=== PATIENT | male | born 1975 | race Two or more races ===

== ENCOUNTER 2017-08-07 21:42 | Emergency (ER) | payer MEDICAID ==
[~2017-08-07] VITALS: Ht 172.7 cm; Wt 86.5 kg
[~2017-08-07 21:42] MED LIST: ADV50250 IH; ALB0.5UD IH; ALBU18HF2 INH; ALBU6.7H INH; BENZ-16 PO; COMIN IH; CYCL-1 PO; DIPH-423 PO; EPIN0.3P3 IM; GUAI473S11 PO; INDO50CA PO; LEVA15HF4 IH; METH4TAB81 PO; OMEG500C PO; PRED10TA PO; PRED20TA PO; TELM20TA2 PO
[2017-08-07 22:05] VITALS: BP 146/90
[2017-08-07] MEDS ORDERED: HYDROcodone/acetaminophen 10/325mg tab PO ONE (23:00)
[2017-08-07] MEDS ORDERED: ibuprofen tablet 400 MG TABLET PO ONE (23:00)
[2017-08-07] MEDS ORDERED: IBUP-1986 PO (23:03)
== END 2017-08-07 23:15 | disposition home or self-care (01) ==
LOC: ER 21:43
DX: S90.31XA Contusion of right foot, initial encounter (principal); I10 Essential (primary) hypertension; J45.909 Unspecified asthma, uncomplicated; E11.9 Type 2 diabetes mellitus without complications; G89.29 Other chronic pain; M54.9 Dorsalgia, unspecified; Z91.013 Allergy to seafood; W20.8XXA Other cause of strike by thrown, projected or falling object, initial encounter; Y93.89 Activity, other specified; Y92.89 Other specified places as the place of occurrence of the external cause; Y99.0 Civilian activity done for income or pay
CPT/HCPCS: 73660; 99284

== ENCOUNTER → 2017-10-12 | Emergency (ER) | payer MEDICAID, OTHER ==
[~2017-10-12] VITALS: Ht 172.7 cm; Wt 77.9 kg
[~2017-10-12] MED LIST changes: +DICL50TA8 PO; +IBUP-1986 PO; +ketorolac trometh inj. 60 MG/2 ML VIAL IM ONE
[2017-10-12 13:18] VITALS: BP 145/89
== END | disposition home or self-care (01) ==
LOC: ER 12:23
DX: S46.912A Strain of unspecified muscle, fascia and tendon at shoulder and upper arm level, left arm, initial encounter (principal); I10 Essential (primary) hypertension; E11.9 Type 2 diabetes mellitus without complications; G89.29 Other chronic pain; J45.909 Unspecified asthma, uncomplicated; Z91.013 Allergy to seafood; Z79.899 Other long term (current) drug therapy; X50.0XXA Overexertion from strenuous movement or load, initial encounter; Y93.89 Activity, other specified; Y92.89 Other specified places as the place of occurrence of the external cause; Y99.8 Other external cause status
CPT/HCPCS: 96372; 99283; A4565; J1885

== ENCOUNTER 2017-11-18 10:13 | Emergency (ER) | payer MEDICAID, OTHER ==
[~2017-11-18] VITALS: Ht 172.7 cm; Wt 85.9 kg
[~2017-11-18 10:13] MED LIST changes: -ketorolac trometh inj. 60 MG/2 ML VIAL IM ONE
[2017-11-18] MEDS ORDERED: AMOX-100 PO (10:47)
[2017-11-18] MEDS ORDERED: ACET-3067 PO (10:47)
[2017-11-18] MEDS ORDERED: CHLO473M3 PO (10:47)
[2017-11-18 10:58] VITALS: BP 147/86
== END 2017-11-18 10:59 | disposition home or self-care (01) ==
LOC: ER 10:14
DX: S03.2XXA Dislocation of tooth, initial encounter (principal); X58.XXXA Exposure to other specified factors, initial encounter; Y93.89 Activity, other specified; Y92.89 Other specified places as the place of occurrence of the external cause; Y99.8 Other external cause status; I10 Essential (primary) hypertension; E11.9 Type 2 diabetes mellitus without complications; G89.29 Other chronic pain; J45.909 Unspecified asthma, uncomplicated; Z91.013 Allergy to seafood; Z79.899 Other long term (current) drug therapy
CPT/HCPCS: 99283

== ENCOUNTER 2017-12-25 17:57 | Emergency (ER) | payer MEDICAID ==
[~2017-12-25] VITALS: Ht 172.7 cm; Wt 87.2 kg
[~2017-12-25 17:57] MED LIST changes: +CHLO473M3 PO
[2017-12-25 18:04] VITALS: BP 182/107
[2017-12-25] MEDS ORDERED: PENI250T2 PO (18:28)
[2017-12-25] MEDS ORDERED: NAPR-56 PO (18:29)
[2017-12-25] MEDS ORDERED: HYDROcodone/acetaminophen 5mg/325mg tablet PO ONE (18:30)
== END 2017-12-25 18:40 | disposition home or self-care (01) ==
LOC: ER 17:58
DX: K08.89 Other specified disorders of teeth and supporting structures (principal); I10 Essential (primary) hypertension; J45.909 Unspecified asthma, uncomplicated; G89.29 Other chronic pain; Z91.013 Allergy to seafood; Z79.899 Other long term (current) drug therapy
CPT/HCPCS: 99283

== ENCOUNTER 2019-02-03 17:11 | Emergency (ER) | payer MEDICAID ==
[~2019-02-03] VITALS: Ht 172.7 cm; Wt 80.0 kg
[~2019-02-03 17:11] MED LIST changes: -ALBU6.7H INH; +ALBU6.7H9 INH; -INDO50CA PO; +INDO50CA96 PO
[2019-02-03] MEDS ORDERED: aspirin 81mg tab.chew PO ONE (18:05)
--- NOTE | 2019-02-03 18:19 | NUR ---
PT IS 43 YO MALE C/O "SHARP PAIN " TO LEFT CHEST AND LEFT SHOULDER AT 0900, LASTED 5-10 SECONDS, "THEN JUST SORE FEELING THE REST OF THE DAY", 07/17, NO SOB, NO N/V
[2019-02-03 18:20] LABS: BASOPHILS # (AUTO) 0.1 X10'3 (0-0.2); BASOPHILS % (AUTO) 0.8 % (0-1); EOSINOPHILS # (AUTO) 0.6 X10'3 (0-0.9); EOSINOPHILS % (AUTO) 7.7 % (0-6); HEMATOCRIT 41.4 % (42.0-52.0); HEMOGLOBIN 13.8 g/dl (14.0-17.9); LYMPHOCYTES # (AUTO) 3.3 X10'3 (1.1-4.8); LYMPHOCYTES % (AUTO) 39.4 % (21-51); MEAN CORPUSCULAR HEMOGLOBIN 30.1 PG (27.0-31.0); MEAN CORPUSCULAR HGB CONC 33.3 g/dL (33.0-36.5); MEAN CORPUSCULAR VOLUME 90.4 FL (78-98); MEAN PLATELET VOLUME 7.7 FL (7.4-10.4); MONOCYTES # (AUTO) 0.7 X10'3 (0-0.9); MONOCYTES % (AUTO) 8.3 % (2-12); NEUTROPHILS # (AUTO) 3.6 X10'3 (1.8-7.7); NEUTROPHILS % (AUTO) 43.8 % (42-75); PLATELET COUNT 259 X10'3 (140-440); RED BLOOD COUNT 4.58 X10'6 (4.70-6.10); RED CELL DISTRIBUTION WIDTH 14.9 % (11.5-14.5); WHITE BLOOD COUNT 8.2 X10'3 (4.5-11.0)
[2019-02-03 18:34] LABS: PARTIAL THROMBOPLASTIN TIME 25 SECONDS (22-32)
[2019-02-03 18:42] LABS: ALANINE AMINOTRANSFERASE 34 U/L (12-78); ALBUMIN 3.9 G/DL (3.4-5.0); ALBUMIN/GLOBULIN RATIO 1.2 (1.1-1.5); ALKALINE PHOSPHATASE 82 IU/L (46-116); ANION GAP 8 (8-16); ASPARTATE AMINO TRANSFERASE 16 U/L (10-37); BILIRUBIN,TOTAL 0.3 MG/DL (0.1-1.0); BLOOD UREA NITROGEN 18 MG/DL (7-18); CALCIUM 8.9 MG/DL (8.5-10.1); CHLORIDE 110 MMOL/L (99-107); GLUCOSE 101 MG/DL (70-104); POTASSIUM 3.8 MMOL/L (3.5-5.1); SODIUM 145 MMOL/L (135-145); TOTAL CARBON DIOXIDE 27.2 MMOL/L (24-32); TOTAL PROTEIN 7.2 G/DL (6.4-8.2); eGFR 81 ML/MIN
[2019-02-03 18:55] LABS: D-DIMER < 0.19 MG/L FEU (0-0.50)
[2019-02-03 19:13] VITALS: BP 139/88
== END 2019-02-03 19:15 | disposition home or self-care (01) ==
LOC: ER 17:11
DX: R07.89 Other chest pain (principal); I10 Essential (primary) hypertension; J45.909 Unspecified asthma, uncomplicated; E11.9 Type 2 diabetes mellitus without complications; G89.29 Other chronic pain; Z91.013 Allergy to seafood; Z79.899 Other long term (current) drug therapy
CPT/HCPCS: 36415; 71045; 80053; 84484; 85025; 85379; 85610; 85730; 93005; 99284

== ENCOUNTER 2020-05-04 21:55 | Emergency (ER) | payer MEDICAID ==
[~2020-05-04] VITALS: Ht 172.7 cm; Wt 86.0 kg
[2020-05-04 21:58] VITALS: BP 153/95
--- NOTE | 2020-05-04 22:05 | NUR ---
Pt placed in ambulance bay for precaution and evaluated by provider.
[2020-05-04] MEDS ORDERED: PRED20TA PO (22:10)
[2020-05-04] MEDS ORDERED: predniSONE 20 mg tablet PO ONE (22:10)
== END 2020-05-04 22:19 | disposition home or self-care (01) ==
LOC: ER 21:56
DX: J20.9 Acute bronchitis, unspecified (principal); R06.02 Shortness of breath; R05 Cough; R19.7 Diarrhea, unspecified; R07.89 Other chest pain; I10 Essential (primary) hypertension; J45.909 Unspecified asthma, uncomplicated; E11.9 Type 2 diabetes mellitus without complications; G89.29 Other chronic pain; Z72.89 Other problems related to lifestyle; Z91.013 Allergy to seafood; Z79.899 Other long term (current) drug therapy
CPT/HCPCS: 99283; J7512

== ENCOUNTER → 2020-11-15 | Emergency (ER) | payer MEDICAID ==
[~2020-11-15] VITALS: Ht 172.7 cm; Wt 83.2 kg
[2020-11-15 19:27] VITALS: BP 151/92
== END | disposition left against medical advice (07) ==
LOC: ER 19:19
DX: I10 Essential (primary) hypertension (principal); Z53.21 Procedure and treatment not carried out due to patient leaving prior to being seen by health care provider
CPT/HCPCS: 82948

== ENCOUNTER 2020-12-11 10:48 | Emergency (ER) | payer MEDICAID ==
[~2020-12-11] VITALS: Ht 172.7 cm; Wt 83.3 kg
[2020-12-11 10:58] VITALS: BP 134/90
[2020-12-11] MEDS ORDERED: PRED20TA PO (13:29)
--- NOTE | 2020-12-11 14:07 | NUR ---
PATIENT WAS SEEN, TREATED, AND DC PER PROVIDER. DC INSTRUCTIONS AND RX GIVEN.
== END 2020-12-11 14:06 | disposition home or self-care (01) ==
LOC: ER 10:49
DX: J20.9 Acute bronchitis, unspecified (principal); J45.909 Unspecified asthma, uncomplicated; R06.02 Shortness of breath; I10 Essential (primary) hypertension; E11.9 Type 2 diabetes mellitus without complications; G89.29 Other chronic pain; Z72.89 Other problems related to lifestyle; Z91.013 Allergy to seafood; Z79.899 Other long term (current) drug therapy
CPT/HCPCS: 71046; 99283

== ENCOUNTER → 2021-02-06 | Emergency (ER) | payer MEDICAID ==
[~2021-02-06] VITALS: Ht 172.7 cm; Wt 86.3 kg
[2021-02-06 22:22] VITALS: BP 146/90
== END | disposition home or self-care (01) ==
LOC: ER 22:18
DX: M79.674 Pain in right toe(s) (principal); I10 Essential (primary) hypertension; E11.9 Type 2 diabetes mellitus without complications; G89.29 Other chronic pain; M54.9 Dorsalgia, unspecified; J45.909 Unspecified asthma, uncomplicated; Z88.2 Allergy status to sulfonamides; Z79.899 Other long term (current) drug therapy
CPT/HCPCS: 73660; 99283

== ENCOUNTER 2021-04-26 19:10 | Emergency (ER) | payer MEDICAID ==
[~2021-04-26] VITALS: Ht 172.7 cm; Wt 84.0 kg
[2021-04-26 20:47] LABS: BASOPHILS % (AUTO) 0.4 % (0-1); EOSINOPHILS % (AUTO) 0.2 % (0-6); HEMATOCRIT 53.3 % (42.0-52.0); HEMOGLOBIN 17.5 g/dl (14.0-17.9); LYMPHOCYTES # (AUTO) 1.9 X10'3 (1.1-4.8); LYMPHOCYTES % (AUTO) 15.7 % (21-51); MEAN CORPUSCULAR HEMOGLOBIN 29.6 PG (27.0-31.0); MEAN CORPUSCULAR HGB CONC 32.8 g/dL (33.0-36.5); MEAN CORPUSCULAR VOLUME 90.1 FL (78-98); MEAN PLATELET VOLUME 7.8 FL (7.4-10.4); MONOCYTES # (AUTO) 0.7 X10'3 (0-0.9); MONOCYTES % (AUTO) 5.5 % (2-12); NEUTROPHILS # (AUTO) 9.5 X10'3 (1.8-7.7); NEUTROPHILS % (AUTO) 78.2 % (42-75); PLATELET COUNT 355 X10'3 (140-440); RED BLOOD COUNT 5.92 X10'6 (4.70-6.10); RED CELL DISTRIBUTION WIDTH 14.2 % (11.5-14.5); WHITE BLOOD COUNT 12.2 X10'3 (4.5-11.0)
[2021-04-26 20:55] LABS: ALANINE AMINOTRANSFERASE 118 U/L (12-78); ALBUMIN 4.7 G/DL (3.4-5.0); ALBUMIN/GLOBULIN RATIO 0.9 (1.1-1.5); ALKALINE PHOSPHATASE 97 IU/L (46-116); ANION GAP 15 (8-16); ASPARTATE AMINO TRANSFERASE 35 U/L (10-37); BILIRUBIN,TOTAL 0.3 MG/DL (0.1-1.0); BLOOD UREA NITROGEN 17 MG/DL (7-18); BUN/CREATININE RATIO 12.8 (5.4-32.0); CALCIUM 10.3 MG/DL (8.5-10.1); CHLORIDE 101 MMOL/L (99-107); CREATININE 1.33 MG/DL (0.60-1.10); GLUCOSE 246 MG/DL (70-104); POTASSIUM 4.2 MMOL/L (3.5-5.1); SODIUM 143 MMOL/L (135-145); TOTAL CARBON DIOXIDE 27.3 MMOL/L (24-32); TOTAL PROTEIN 9.7 G/DL (6.4-8.2); eGFR 58 ML/MIN
[2021-04-26] MEDS ORDERED: EPIN0.3A3 (23:32)
[2021-04-26] MEDS ORDERED: LANC-509 TOP (23:32)
[2021-04-26] MEDS ORDERED: LORA10TA7 PO (23:32)
[2021-04-26] MEDS ORDERED: ALBU2.5V13 (23:32)
[2021-04-26] MEDS ORDERED: BUDE10.27 (23:32)
[2021-04-26] MEDS ORDERED: METO-384 PO (23:32)
[2021-04-26] MEDS ORDERED: METF-438 PO (23:32)
[2021-04-26] MEDS ORDERED: MONT10TA32 PO (23:32)
[2021-04-26] MEDS ORDERED: ATOR20TA66 PO (23:32)
[2021-04-26] MEDS ORDERED: HYDR25TA4 PO (23:32)
[2021-04-26 23:40] VITALS: BP 117/90
--- NOTE | 2021-04-28 14:24 | NUR ---
Spoke with Dr. velasco regarding postive blood culture. Dr. Velasco stated that we need to wait for sensitivity report before further orders.
== END 2021-04-27 00:53 | disposition home or self-care (01) ==
LOC: ER 19:11
DX: J20.9 Acute bronchitis, unspecified (principal); R05.9 Cough, unspecified; R06.02 Shortness of breath; I10 Essential (primary) hypertension; J45.909 Unspecified asthma, uncomplicated; E11.9 Type 2 diabetes mellitus without complications; G89.29 Other chronic pain; F17.200 Nicotine dependence, unspecified, uncomplicated; Z72.89 Other problems related to lifestyle; Z91.013 Allergy to seafood; Z79.899 Other long term (current) drug therapy
CPT/HCPCS: 36415; 71046; 80053; 83880; 85025; 87040; 99284

== ENCOUNTER → 2021-07-07 | Emergency (ER) | payer MEDICAID ==
[~2021-07-07] VITALS: Ht 172.7 cm; Wt 90.0 kg
[~2021-07-07] MED LIST changes: -ALB0.5UD IH; +ALBU2.5V13; +ATOR20TA66 PO; -BENZ-16 PO; +BUDE10.27; -CHLO473M3 PO; -CYCL-1 PO; -DICL50TA8 PO; -DIPH-423 PO; +EPIN0.3A3; -EPIN0.3P3 IM; -GUAI473S11 PO; +HYDR25TA4 PO; -INDO50CA96 PO; +LANC-509 TOP; +LORA10TA7 PO; +METF-438 PO; +METO-384 PO; +MONT-40 PO; -OMEG500C PO; -PRED10TA PO; -TELM20TA2 PO
[2021-07-07 09:31] VITALS: BP 139/73
== END | disposition home or self-care (01) ==
LOC: ER 09:03
DX: J45.901 Unspecified asthma with (acute) exacerbation (principal); R05.9 Cough, unspecified; R06.02 Shortness of breath; I10 Essential (primary) hypertension; E11.9 Type 2 diabetes mellitus without complications; G89.29 Other chronic pain; F17.200 Nicotine dependence, unspecified, uncomplicated; Z72.89 Other problems related to lifestyle; Z91.013 Allergy to seafood; Z79.899 Other long term (current) drug therapy
CPT/HCPCS: 99283

== ENCOUNTER 2021-10-05 12:56 | Emergency (ER) | payer MEDICAID ==
[~2021-10-05] VITALS: Ht 172.7 cm; Wt 81.8 kg
[2021-10-05 13:22] LABS: BASOPHILS # (AUTO) 0.1 X10'3 (0-0.2); BASOPHILS % (AUTO) 1.2 % (0-1); EOSINOPHILS % (AUTO) 11.7 % (0-6); HEMATOCRIT 43.3 % (42.0-52.0); HEMOGLOBIN 14.5 g/dl (14.0-17.9); LYMPHOCYTES # (AUTO) 2.5 X10'3 (1.1-4.8); LYMPHOCYTES % (AUTO) 30.5 % (21-51); MEAN CORPUSCULAR HEMOGLOBIN 28.8 PG (27.0-31.0); MEAN CORPUSCULAR HGB CONC 33.6 g/dL (33.0-36.5); MEAN CORPUSCULAR VOLUME 85.8 FL (78-98); MEAN PLATELET VOLUME 7.7 FL (7.4-10.4); MONOCYTES # (AUTO) 0.8 X10'3 (0-0.9); MONOCYTES % (AUTO) 9.6 % (2-12); NEUTROPHILS # (AUTO) 3.9 X10'3 (1.8-7.7); PLATELET COUNT 290 X10'3 (140-440); RED BLOOD COUNT 5.05 X10'6 (4.70-6.10); RED CELL DISTRIBUTION WIDTH 13.7 % (11.5-14.5); WHITE BLOOD COUNT 8.3 X10'3 (4.5-11.0)
[2021-10-05 13:36] LABS: ALBUMIN 4.1 G/DL (3.4-5.0); ALBUMIN/GLOBULIN RATIO 1.2 (1.1-1.5); ANION GAP 12 (8-16); ASPARTATE AMINO TRANSFERASE 25 U/L (10-37); BILIRUBIN,TOTAL 0.4 MG/DL (0.1-1.0); BLOOD UREA NITROGEN 13 MG/DL (7-18); BUN/CREATININE RATIO 13.4 (5.4-32.0); CALCIUM 9.1 MG/DL (8.5-10.1); CHLORIDE 104 MMOL/L (99-107); CREATININE 0.97 MG/DL (0.60-1.10); GLUCOSE 160 MG/DL (70-104); POTASSIUM 3.2 MMOL/L (3.5-5.1); SODIUM 142 MMOL/L (135-145); TOTAL CARBON DIOXIDE 26.1 MMOL/L (24-32); TOTAL PROTEIN 7.4 G/DL (6.4-8.2); eGFR 83 ML/MIN
[2021-10-05 13:37] LABS: ALANINE AMINOTRANSFERASE 59 U/L (12-78); ALKALINE PHOSPHATASE 74 IU/L (46-116)
[2021-10-05 14:11] VITALS: BP 146/89
[2021-10-05] MEDS ORDERED: potassium Cl 20 mEq SR tablet PO STA (14:27)
[2021-10-05] MEDS ORDERED: ALBU18HF2 INH (14:33)
[2021-10-05] MEDS ORDERED: PRED20TA PO (14:33)
[2021-10-05] MEDS ORDERED: dexamethasone 4mg tablet PO ONE (14:35)
== END 2021-10-05 15:05 | disposition home or self-care (01) ==
LOC: ER 12:57
DX: J45.901 Unspecified asthma with (acute) exacerbation (principal); E87.6 Hypokalemia; I10 Essential (primary) hypertension; G89.29 Other chronic pain; M54.9 Dorsalgia, unspecified; Z91.013 Allergy to seafood; Z88.2 Allergy status to sulfonamides
CPT/HCPCS: 36415; 71046; 80053; 85025; 93005; 99285

== ENCOUNTER 2023-04-15 15:44 | Emergency (ER) | payer MEDICAID ==
[~2023-04-15] VITALS: Ht 172.7 cm; Wt 90.0 kg
[~2023-04-15 15:44] MED LIST changes: +ALBU6.7H14 INH; -ALBU6.7H9 INH
[2023-04-15 15:48] VITALS: BP 152/90; PULSE 78; RESP 18; TEMP 98; O2SAT 98
== END 2023-04-15 19:19 | disposition left against medical advice (07) ==
LOC: ER 15:45
DX: R10.2 Pelvic and perineal pain (principal); Z53.21 Procedure and treatment not carried out due to patient leaving prior to being seen by health care provider
CPT/HCPCS: 99281

== ENCOUNTER 2023-04-19 18:39 | Emergency (ER) | payer MEDICAID ==
[~2023-04-19] VITALS: Ht 172.7 cm; Wt 79.2 kg
[2023-04-19 19:12] LABS: BILIRUBIN,URINE NEGATIVE (Neg); CLARITY,URINE CLEAR (Clear); COLOR,URINE STRAW (Yellow); GLUCOSE, URINE 500 mg/dl (Neg); KETONES,URINE NEGATIVE (Neg); LEUKOCYTE ESTERASE ,URINE NEGATIVE (Neg); NITRITES, URINE NEGATIVE (Neg); OCCULT BLOOD,URINE TRACE-INTACT (Neg); PROTEIN,URINE NEGATIVE (Neg)
[2023-04-19 19:13] LABS: UA COLLECTION TYPE CLN CATCH MIDSTREAM
[2023-04-19 19:25] LABS: BACTERIA,URINE NONE SEEN /HPF (Neg); MUCUS STRANDS NONE SEEN /LPF (Neg); RBC,URINE 0-2 /HPF (0-2); SQUAMOUS EPITHELIAL CELL,UR NONE SEEN /LPF (FEW); WBC,URINE 0-4 /HPF (0-4)
--- NOTE | 2023-04-19 20:24 | NUR ---
PT PAIN HAS IMPROVED
[2023-04-19 20:34] LABS: BASOPHILS # (AUTO) 0.1 X10'3 (0-0.2); BASOPHILS % (AUTO) 0.7 % (0-1); EOSINOPHILS # (AUTO) 0.4 X10'3 (0-0.9); EOSINOPHILS % (AUTO) 4.2 % (0-6); HEMATOCRIT 48.1 % (42.0-52.0); HEMOGLOBIN 16.3 g/dl (14.0-17.9); LYMPHOCYTES # (AUTO) 3.6 X10'3 (1.1-4.8); LYMPHOCYTES % (AUTO) 35.9 % (21-51); MEAN CORPUSCULAR HGB CONC 33.8 g/dL (33.0-36.5); MEAN CORPUSCULAR VOLUME 88.8 FL (78-98); MEAN PLATELET VOLUME 7.4 FL (7.4-10.4); MONOCYTES # (AUTO) 0.8 X10'3 (0-0.9); MONOCYTES % (AUTO) 8.2 % (2-12); NEUTROPHILS # (AUTO) 5.2 X10'3 (1.8-7.7); PLATELET COUNT 330 X10'3 (140-440); RED BLOOD COUNT 5.41 X10'6 (4.70-6.10); RED CELL DISTRIBUTION WIDTH 13.9 % (11.5-14.5); WHITE BLOOD COUNT 10.1 X10'3 (4.5-11.0)
[2023-04-19 21:01] LABS: ALANINE AMINOTRANSFERASE 60 U/L (12-78); ALBUMIN 4.2 G/DL (3.4-5.0); ALBUMIN/GLOBULIN RATIO 1.1 (1.1-1.5); ALKALINE PHOSPHATASE 116 IU/L (46-116); BILIRUBIN,TOTAL 0.2 MG/DL (0.1-1.0); BLOOD UREA NITROGEN 20 MG/DL (7-18); CALCIUM 9.4 MG/DL (8.5-10.1); CHLORIDE 101 MMOL/L (99-107); CREATININE 1.25 MG/DL (0.60-1.10); TOTAL CARBON DIOXIDE 32.3 MMOL/L (24-32); eCRCL 69 ML/MIN; eGFR 61 ML/MIN
[2023-04-19 22:06] LABS: ASPARTATE AMINO TRANSFERASE 21 U/L (10-37); GLUCOSE 225 MG/DL (70-104)
[2023-04-19 22:26] LABS: LIPASE 36 U/L (16-77)
[2023-04-19 22:46] LABS: ANION GAP 7 (8-16); POTASSIUM 3.4 MMOL/L (3.5-5.1); SODIUM 140 MMOL/L (135-145)
[2023-04-19] MEDS ORDERED: iohexol 300mg/ml 100ml inj. ONE (23:02)
[2023-04-19] MEDS ORDERED: morphine 4 MG/ML inj SYRINge IV ONE (23:25)
[2023-04-19] MEDS ORDERED: ondansetron/PF 4mg/2ml inj IV ONE (23:25)
[2023-04-19 23:51] VITALS: BP 147/103; PULSE 70; RESP 17; TEMP 97.6; O2SAT 98
== END 2023-04-20 | disposition home or self-care (01) ==
LOC: ER 18:40
DX: R10.31 Right lower quadrant pain (principal); N18.9 Chronic kidney disease, unspecified; I12.0 Hypertensive chronic kidney disease with stage 5 chronic kidney disease or end stage renal disease; E11.22 Type 2 diabetes mellitus with diabetic chronic kidney disease; J45.909 Unspecified asthma, uncomplicated; F17.200 Nicotine dependence, unspecified, uncomplicated; Z91.013 Allergy to seafood; Z79.899 Other long term (current) drug therapy; Z79.1 Long term (current) use of non-steroidal anti-inflammatories (NSAID)
CPT/HCPCS: 36415; 74177; 80053; 81001; 83690; 85025; 96374; 96375; 99285; J2270; J2405; J3490; Q9967

== ENCOUNTER 2024-05-05 11:00 | Emergency (ER) | payer MEDICAID ==
[~2024-05-05] VITALS: Ht 172.7 cm; Wt 81.5 kg
[2024-05-05 11:07] VITALS: BP 171/99; PULSE 91; RESP 18; O2SAT 100
[2024-05-05 11:59] VITALS: TEMP 97.4
== END 2024-05-05 12:01 | disposition home or self-care (01) ==
LOC: ER 11:01
DX: Z48.00 Encounter for change or removal of nonsurgical wound dressing (principal); I10 Essential (primary) hypertension; J45.909 Unspecified asthma, uncomplicated; E11.9 Type 2 diabetes mellitus without complications; G89.29 Other chronic pain; M54.9 Dorsalgia, unspecified; F17.210 Nicotine dependence, cigarettes, uncomplicated; Z72.89 Other problems related to lifestyle; Z91.013 Allergy to seafood; Z79.84 Long term (current) use of oral hypoglycemic drugs; Z79.1 Long term (current) use of non-steroidal anti-inflammatories (NSAID); Z79.52 Long term (current) use of systemic steroids; Z79.899 Other long term (current) drug therapy
CPT/HCPCS: 99281

== ENCOUNTER 2024-12-15 23:02 | Inpatient (IN) | payer MEDICAID ==
[~2024-12-15] VITALS: Ht 172.7 cm; Wt 79.2 kg
[2024-12-15 23:21] LABS: BASOPHILS # (AUTO) 0.1 X10'3 (0-0.2); BASOPHILS % (AUTO) 0.7 % (0-1); EOSINOPHILS # (AUTO) 0.4 X10'3 (0-0.9); HEMATOCRIT 44.4 % (42.0-52.0); HEMOGLOBIN 15.3 g/dl (14.0-17.9); LYMPHOCYTES # (AUTO) 2.9 X10'3 (1.1-4.8); LYMPHOCYTES % (AUTO) 33.8 % (21-51); MEAN CORPUSCULAR HEMOGLOBIN 30.1 PG (27.0-31.0); MEAN CORPUSCULAR HGB CONC 34.5 g/dL (33.0-36.5); MEAN CORPUSCULAR VOLUME 87.1 FL (78-98); MEAN PLATELET VOLUME 7.2 FL (7.4-10.4); NEUTROPHILS # (AUTO) 4.4 X10'3 (1.8-7.7); NEUTROPHILS % (AUTO) 50.5 % (42-75); PLATELET COUNT 283 X10'3 (140-440); RED CELL DISTRIBUTION WIDTH 13.9 % (11.5-14.5); WHITE BLOOD COUNT 8.6 X10'3 (4.5-11.0)
--- NOTE | 2024-12-15 23:39 | RADIOLOGY REPORT ---
CHEST RADIOGRAPH Indication: CP Technique: Single frontal view of the chest was obtained COMPARISON: CHEST,SINGLE VIEW on DOS: 02/03/19 FINDINGS: Lines and Tubes: None Lungs: Clear Pleura: No effusion. No pneumothorax. Cardiomediastinal contours: Unremarkable Bones: Unremarkable IMPRESSION: 1. No acute disease.
[2024-12-15 23:42] LABS: BLOOD UREA NITROGEN 18 MG/DL (7-18); BUN/CREATININE RATIO 13.7 (10.0-20.0); CHLORIDE 102 MMOL/L (99-107); CREATININE 1.31 MG/DL (0.60-1.10); PRO BRAIN NATRIURETIC PEPTIDE < 30 PG/ML (0-125); TOTAL CARBON DIOXIDE 30.4 MMOL/L (24-32); eCRCL 65 ML/MIN; eGFR 58 ML/MIN
[2024-12-16] VITALS (21 sets, daily range): BP systolic 107–145; BP diastolic 66–91; PULSE 60–94; RESP 15–19; TEMP 97.6–98.6; O2SAT 94–97
[2024-12-16 00:03] LABS: ANION GAP 10 (8-16); GLUCOSE 198 MG/DL (70-104); SODIUM 142 MMOL/L (135-145)
[2024-12-16] MEDS: aspirin 81mg tab.chew PO ONE (04:41)
[2024-12-16] MEDS: nitroGLYCERIN 0.4mg SUBLingual tab SL PRN (04:41)
[2024-12-16] MEDS ORDERED: magnesium sulf-water 2g/50mL 50 ML IV PRN ×2 (05:15→06:25)
[2024-12-16] MEDS ORDERED: ondansetron/PF 4mg/2ml inj IV PRN ×3 (05:15→17:55)
[2024-12-16] MEDS ORDERED: magnesium sulf-water 4G/100mL 100 ML IV PRN ×2 (05:15→06:25)
[2024-12-16] MEDS ORDERED: mag hydrox/Alum hydrox/simeth 30ml oral suspension PO PRN (05:15)
[2024-12-16] MEDS ORDERED: acetaminophen 325mg tablet PO PRN ×2 (05:15→06:25)
[2024-12-16] MEDS ORDERED: potassium Cl 20 mEq SR tablet PO PRN ×3 (05:15→06:25)
[2024-12-16] MEDS ORDERED: potassium Cl 40MEQ/1/2NS 520ml 520 ML IV PRN ×2 (05:15→06:25)
[2024-12-16] MEDS ORDERED: magnesium Cl slow-release 64mg tablet PO PRN ×2 (05:15→06:25)
[2024-12-16] MEDS ORDERED: magnesium hydroxide 30ml (MOM) UD suspension PO PRN ×2 (05:15→06:25)
--- NOTE | 2024-12-16 05:26 | Physician Documentation ---
History of Present Illness ~ Chief Complaint: Chest Pain Stated Complaint: CHEST PAIN Time Seen by MD: 04:21 Primary Medical Doctor: SUSAN ZAPIEN Source: patient Mode of Arrival: POV Exam Limitations: no limitations HPI Patient with history of diabetes and hypertension in with mild chest pain over the weekend that worsened today. It goes across his anterior chest on both sides. Otherwise nonradiating. 02/14. No shortness of breath, diaphoresis or nausea or vomiting. He has never had this kind of pain before. Nonsmoker, no alcohol, no drugs. Medication Reconciliation Allergies: Coded Allergies: Shellfish (Verified Allergy, Unknown, 12/15/24) Scheduled Atorvastatin Calcium (Atorvastatin Calcium), 1 TAB PO DAILY, (Reported) Hydrochlorothiazide (Hydrochlorothiazide), 1 TAB PO DAILY, (Reported) Loratadine (Loratadine), 1 TAB PO DAILY, (Reported) Metformin HCl (Metformin HCl), 1 TAB PO BID, (Reported) Metoprolol Succinate (Metoprolol Succinate), 1 TAB PO DAILY, (Reported) Montelukast Sodium (Montelukast Sodium), 1 TAB PO DAILY, (Reported) Scheduled PRN Ipratropium/Albuterol Sulfate Inhaler* (Combivent Inhaler*), 2 PUFFS IH Q4H PRN, (Reported) Miscellaneous Medications Albuterol Sulfate (Albuterol Sulfate), (Reported) Discontinued Medications Albuterol Sulfate (Proventil Hfa), 2 PUFFS INH Q4H Discontinued Reason: patient no longer taking Albuterol Sulfate (Ventolin Hfa), 2 PUFFS INH Q4HPRN Discontinued Reason: patient no longer taking Albuterol Sulfate (Ventolin Hfa), 2 PUFFS INH Q4HPRN Discontinued Reason: patient no longer taking Budesonide/Formoterol Fumarate (Budesonide-Formoterol 80-4.5), (Reported) Discontinued Reason: patient no longer taking Epinephrine (Epinephrine), (Reported) Discontinued Reason: patient no longer taking Fluticasone/Salmeterol* (Advair 250-50 Diskus*), 1 INH IH DAILY Discontinued Reason: patient no longer taking Ibuprofen (Ibuprofen), 1 TAB PO Q8H Discontinued Reason: patient no longer taking Levalbuterol Tartrate* (Xopenex Inhaler*), 2 PUFF IH Q4H Discontinued Reason: patient no longer taking Methylprednisolone (Medrol Dosepak), 4 MG PO DAILY Discontinued Reason: patient no longer taking Prednisone* (Prednisone*), 40 MG PO DAILY Discontinued Reason: patient no longer taking Durable Medical Equipment Lancets (Freestyle Lancets), EA TOP BID, (Reported), (DME) Past Medical History Past Medical History: Vertigo, Hypertension, Asthma, Bronchitis, Diabetes, Chronic Back Pain Past Surgical History: noncontributory Other Past Family History: Hypertension, Diabetes Smoking Status: Former smoker Alcohol Use: Occasionally Drug Use: none Lives with: Spouse Lives In: Home Occupation: employed Review of Systems All Other Systems at this time: Reviewed and Negative Physical Exam Vital Signs: Temperature: 98.6, Source: Temporal, Heart Rate: 69, Respiratory Rate: 16, BP: 132/82, Pulse Oximetry: 98, Weight: 80.150 Oxygen Flow Rate: 0 Physical Exam General: Alert and oriented x4, well-appearing, well-nourished, no acute distress HEENT: Normocephalic, atraumatic, no visible or palpable masses or depression, extraocular movements intact, PERRLA, no scleral icterus, neck is supple and nontender, mucous membranes moist Heart: Regular rate and rhythm, no murmurs, rubs or gallops Lungs: Clear to auscultation bilaterally, normal work of breathing Abdomen: Soft, nontender, no palpable masses, normal bowel sounds Back: Spine is without deformity or tenderness, no CVA tenderness Extremities: Full range of motion, no acute deformity, peripheral pulses intact, no cyanosis or edema Musculoskeletal: Normal gait, normal tone Neurologic: Cranial nerves 2-12 are intact, reflexes normal Psychiatric: Alert and oriented x4, judgment and insight normal, normal mood and affect Skin: Good turgor, no rashes Progress Results/Orders Results/Orders Orders - CHERELLE MILLER MD Chest,Single View (12/15/24 23:21) Monitor (12/15/24 23:06) Saline Lock (12/15/24 23:06) Oxygen (12/15/24 23:06) Electrocardiogram (12/15/24 23:06) Nitroglycerin Sublingual Tab (Nitrostat (12/16/24 04:35) Page Hospitalist (12/16/24 04:32) Fill Out Med Reconciliation (12/16/24 04:32) Completed Orders - CHERELLE MILLER MD Chest,Single View (12/15/24 23:21) Cbc/Diff (12/15/24 23:06) BMP (12/15/24 23:06) PBNP (12/15/24 23:06) Hs Troponin I W Calculations (12/15/24 23:06) Hs Troponin I W Calculations (12/16/24 01:06) Hs Troponin I W Calculations (12/16/24 02:06) Aspirin 81mg Chew Tablet (Aspirin 81mg C (12/16/24 04:35) Medications Received in ER Medications (Trade) Dose Ordered Sig/Ivana Route PRN Reason Start Time Stop Time Status Last Admin Dose Admin (aspirin 81MG chew tablet) 324 mg ONCE ONCE PO 12/16/24 04:35 12/16/24 04:36 DC 12/16/24 04:41 324 MG (Nitrostat SL tablet) 0.4 mg Q5MIN PRN SL chest pain 12/16/24 04:35 12/16/24 05:08 0.4 MG Vital Signs 12/15/24 12/16/24 12/16/24 23:03 04:21 04:58 Temp 98.6 98.6 98.6 Pulse 96 70 69 Resp 16 16 16 B/P (MAP) 149/84 133/87 (102) 132/82 (99) Pulse Ox 97 98 98 O2 Flow Rate 0 Laboratory Tests Test 12/15/24 23:14 12/16/24 00:53 12/16/24 01:53 White Blood Count 8.6 Red Blood Count 5.10 Hemoglobin 15.3 Hematocrit 44.4 Mean Corpuscular Volume 87.1 Mean Corpuscular Hemoglobin 30.1 Mean Corpuscular Hemoglobin Concent 34.5 Red Cell Distribution Width 13.9 Platelet Count 283 Mean Platelet Volume 7.2 L Neutrophils (%) (Auto) 50.5 Lymphocytes (%) (Auto) 33.8 Monocytes (%) (Auto) 11.0 Eosinophils (%) (Auto) 4.0 Basophils (%) (Auto) 0.7 Neutrophils # (Auto) 4.4 Lymphocytes # (Auto) 2.9 Monocytes # (Auto) 1.0 H Eosinophils # (Auto) 0.4 Basophils # (Auto) 0.1 CBC Comment Sodium Level 142 Potassium Level 3.0 *L Chloride Level 102 Carbon Dioxide Level 30.4 Anion Gap 10 Blood Urea Nitrogen 18 Creatinine 1.31 H Estimated GFR/1.73 m2 58 BUN/Creatinine Ratio 13.7 Glucose Level 198 H Calcium Level 9.0 Troponin I High Sensitivity 7 8 6 Pro-B-Type Natriuretic Peptide < 30 Albumin 4.0 Chemistry Comments Troponin I High Sens Percent Delta 14 25 Troponin I Hi Sens Absolute Change 1 -2 Heart Score: Heart Score Response (Comments) Value History Moderate Suspicious 1 EKG Normal 0 Age 45-64 1 Risk Factors 1 or 2 risk factors 1 Troponin Normal limit 0 Total 3 Medical Decision Making Additional Information Differential includes but is not limited to: Myocardial infarction, angina, GERD, pleurisy, costochondritis, tamponade, pneumothorax, dissection, anxiety Departure Admitted to Inpatient Unit: yes, to hospitalist Admission Level of Care: Med/Surg with Tele Impression: Primary Impression: Unstable angina Condition: Stable Referrals: NO PRIMARY CARE PROVIDER (PCP) Signature Scribe Signature: No scribe Attestation: No scribed CHERELLE MILLER MD Dec 16, 2024 05:26
--- NOTE | 2024-12-16 06:02 | PROGRESS NOTE ---
Critical Care Summary Note Critical Care Summary Note Admission Diagnosis: Dec 16, 2024 Admission Diagnosis comment: Chest pain syndrome with normal cardiac markers and chest radiograph. CC DC Diagnosis\Comment: Resident note yet to be written. 49-year-old man with diabetes mellitus and hypertension presents with 8/10 band-like chest discomfort. Cardiac markers negative X3. Chest radiograph without acute disease. EKG remains pending. *Problems/Diagnosis: (1) Unstable angina Assessment & Plan: Admit to telemetry to r/o ischemic etiology of the patient's chest pain. ROXANN ROD MD Dec 16, 2024 06:02
[2024-12-16] MEDS: K and/or MAG REPLACEMENT MC SCH ×2 (06:25→06:31)
[2024-12-16] MEDS: docusate sod 100mg capsule PO SCH (06:32)
[2024-12-16] MEDS ORDERED: nitroGLYCERIN 0.4mg SUBLingual tab SL PRN ×2 (06:45→18:00)
[2024-12-16] MEDS ORDERED: aminophylline 500mg/20ml vial IV PRN (06:45)
[2024-12-16] MEDS ORDERED: metoprolol tartrate 1mg/ml inj IV PRN (06:45)
--- NOTE | 2024-12-16 06:45 | HISTORY AND PHYSICAL-Residence ---
History & Physical Providers to CC Resident Creating Document: NADIRA ACOSTA RES ~ History of Present Illness Primary Medical Doctor: SUSAN ZAPIEN Reason for Admit\Complaint: Chest pain History of Present Illness 49 years old male with history of hypertension dyslipidemia diabetes mellitus presented to the ED with chest pain. Patient reported intermittent chest pain started about three days ago and it last about couple of sec. It was not radiated, located on the upper chest and not related to physical activity or rest. Patient denied coughing shortness of breaths. He denied any exacerbation or alleviating factor Allergies: Coded Allergies: Shellfish (Verified Allergy, Unknown, 12/15/24) Home Medications Home Medications Active Reported Atorvastatin Calcium 20 Mg Tablet 1 Tab PO DAILY Hydrochlorothiazide 25 Mg Tablet 1 Tab PO DAILY Freestyle Lancets (Lancets) 1 Each Each Ea TOP BID Metformin HCl 1,000 Mg Tablet 1 Tab PO BID Montelukast Sodium 10 Mg Tablet 1 Tab PO DAILY Loratadine 10 Mg Tablet 1 Tab PO DAILY Metoprolol Succinate 50 Mg Tab.sr.24h 1 Tab PO DAILY Albuterol Sulfate (Albuterol) 2.5 Mg/3 Ml Vial.neb Combivent Inhaler* (Albuterol/Ipratropium) 14.7 Gm Inhaler 2 Puffs IH Q4H PRN Past Medical History Past Medical History Hypertension Dyslipidemia Diabetes mellitus Past Surgical History Surgical History Comment Polypectomy in hemorrhoid Family History Family History: FH: stroke (Mother) Past Social History Smoking: Quit greater than 1 year (Quit smoking two years ago, had history of one pack daily cigarette smoking for more than 20 years) Alcohol Use: Occasionally Drug Use: None Lives with: Spouse Lives In: Home Occupation: employed ROS ROS The history of present illness included a review of system, which yielded relevant positives and negatives Exam Vitals: Vital Signs Date Time Temp Pulse Resp B/P (MAP) Pulse Ox O2 Delivery O2 Flow Rate FiO2 12/16/24 05:24 16 12/16/24 04:58 98.6 69 98 12/15/24 23:03 0 General: General: Awake and Alert, no acute distress. HEENT: Conjunctiva pink, Sclera clear, Mucus Membranes moist. Neck: Supple without masses and tenderness. Resp: Lungs clear to auscultation bilaterally. Heart: Regular Rate and rhythm, normal S1 and S2 Abdomen: Soft and non tender no organomegaly Extremities: No cyanosis,clubbing or edema. Skin: Warm and Dry. Neurological: Speech is clear, alert, and oriented x 4, no gross neurological deficits Diagnostic Data Last Recorded Lab Results: 12/15/24231312/15/242313 Advance Care Planning Advanced Care plannin - 30 Minutes Additional Plan 49 years old male with history of hypertension, dyslipidemia and diabetes mellitus presented with chest pain Chest pain, POSSIBLE CARDIAC Heart score: Four moderate score risk of MACE of 12-16.6% EKG, rate 88, sinus rhythm, Q-wave on lead three and AVF Serial troponin is negative, chest x-ray unremarkable Lexiscan ordered Patient received aspirin 325, we will continue aspirin 81 Lipitor 80 mg, metoprolol 50 started Nitroglycerin and morphine for pain management History of diabetes mellitus Hemoglobin A1c is pending Hyperglycemia hypoglycemia protocol placed Hypokalemia Patient reported intermittent diarrhea in the past Replaced by protocol JAVIER Creatinine 1.31, BUN 18 IV fluid started, continue monitoring Code Status: full DVT prophylaxis: heparin sq Analgesia/sedation: nitro, morphine Line/tube: peripheral GI prophylaxis: protonix Nutrition: NPO for cyndy scan Prognosis: Fair Disposition: Continue monitoring patient in PCU floor with telemetry Nadira Acosta MD Internal Medicine Resident Attending Physican Attestation 49-year-old man with a history of diabetes mellitus, hypertension, and tobacco use presents with chest pain. Troponin measurements and chest radiograph are normal. EKG, by report, is normal. The patient, due to his risk factors for ischemic heart disease, will be admitted for a nuclear stress test. Time spent 45 minutes. Date of Service: Dec 16, 2024 Billing Provider: ROXANN ROD MD, ELAHE, RES Dec 16, 2024 06:45 ROXANN ROD MD Dec 16, 2024 06:53
[2024-12-16] MEDS ORDERED: morphine 2 MG/ML inj. syringe IV PRN ×2 (07:00)
[2024-12-16 07:06] LABS: HEMOGLOBIN A1C 6.7 % (4.5-6.2)
[2024-12-16 07:11] LABS: MAGNESIUM 1.8 MG/DL (1.5-2.4); POTASSIUM 3.2 MMOL/L (3.5-5.1)
[2024-12-16] MEDS: potassium Cl 20 mEq SR tablet PO PRN (07:26)
[2024-12-16] MEDS: heparin, porcine 5000 units/ml vial SQ SCH (07:27)
[2024-12-16] MEDS: normal saline 1000ml 1,000 ML IV SCH ×2 (07:27→17:53)
[2024-12-16] MEDS: metoprolol tartrate 50mg tablet PO SCH (07:27)
[2024-12-16] MEDS: aspirin 81mg, enteric-coated 1 TAB TABLET.DR PO SCH (07:27)
[2024-12-16] MEDS: atorvastatin 20mg tablet PO SCH (07:27)
--- NOTE | 2024-12-16 07:56 | ELECTROCARDIOGRAPH REPORT ---
[facility] Test Date: 2024-12-15 Test Time: 23:07:28 Pat Name: MARLENE MEEHAN Department: EMERGENCY ROOM Room: ED 10 Gender: M Table Games Manager: RYAN : 1975 Requested By: CHERELLE MILLER Order Number: [id number] Reading MD: Measurements Intervals [place] Rate: 88 P: 53 LA: 138 QRS: 99 QRSD: 98 T: -3 QT: 347 QTc: 420 Interpretive Statements Sinus rhythm Borderline right axis deviation Borderline T wave abnormalities Please click the below link to view image of tracing.
[2024-12-16] MEDS ORDERED: docusate sod 100mg capsule PO SCH (08:00)
[2024-12-16 08:07] LABS: CHOL/HDL RATIO 3.5 (0.00-4.99); CHOLESTEROL 134 MG/DL (0-200); HDL CHOLESTEROL 38 MG/DL (35-60); LDL CHOLESTEROL 60 MG/DL (50-100); THYROID STIMULATING HORMONE 1.89 ulU/ml (0.34-4.50); TRIGLYCERIDES 381 MG/DL (20-135)
[2024-12-16] MEDS: regadenoson 0.4mg/5ml syringe IV PRN (10:25)
--- NOTE | 2024-12-16 12:16 | RADIOLOGY REPORT ---
Procedure: NM NM YOMI SCAN Exam Date: 12/16/2024 10:01 AM Reason for study/Clinical History: chest pain Comparison Study: None Myocardial Perfusion Study with SPECT Technique: The patient received an intravenous injection of 7.6 mCi of technetium-99m sestamibi whil e at rest. After a short delay, SPECT tomographic images of the heart were obtained. The patient th en went to the stress lab where they received an intravenous infusion of 0.[address] andard protocol. 32 mCi of technetium-99m sestamibi was injected intravenously immediately after th e start of the lexiscan infusion. Gated SPECT tomographic images of the heart were acquired and proc essed. Findings: Reversible anteroapical defect. End diastolic volume: 84 mL End systolic volume: 33 mL The left ventricular ejection fraction is 60 %. (normal greater than 50%) Impression: 1. Reversible anteroapical defect. 2. The left ventricular ejection fraction is 60 %.
[2024-12-16] MEDS: predniSONE 20 mg tablet PO ONE (13:27)
[2024-12-16] MEDS: diphenhydrAMINE 25mg capsule PO ONE (13:27)
[2024-12-16] MEDS ORDERED: LIDOcaine 1% 30ml preserv. free vial ONE (15:35)
[2024-12-16] MEDS ORDERED: fentaNYL/PF 50MCG/1 ML 2ML syringe ONE (15:35)
[2024-12-16] MEDS ORDERED: midazolam 1 mg/ML 2ml injection ONE ×2 (15:35→16:21)
[2024-12-16] MEDS ORDERED: iohexol 350 MG/ML 50ML vial IV ONE (15:36)
[2024-12-16] MEDS ORDERED: iohexol 350MG/ML 100ml bottle IV ONE (15:36)
[2024-12-16] MEDS ORDERED: heparin 1,000unit/ml 10ml vial 0 ML ONE (15:36)
[2024-12-16] MEDS ORDERED: hydrocortisone sod succ/PF 100mg/2ml inj. ONE (16:04)
[2024-12-16] MEDS ORDERED: nitroGLYCERIN 500mcg/5mL D5W 5 ML IV ONE (16:22)
--- NOTE | 2024-12-16 17:05 | CONSULTATION REPORT ---
Cardiac Consultation Report Providers to CC ~ Subjective Subjective Cardiology consultation: Called to see the patient who was hospitalized with chest pain and had abnormal nuclear stress test with anterior reversible ischemia. On diuretic questioning he does not have any angina during the procedure. Prior to hospitalization he had three or four days of constant waxing waning anterior chest pain. Last Saturday he said he drank too much alcohol and fell asleep on the toilet. He does have multiple risk factors for coronary artery disease he is here with his and daughter. Risk factors are hypertension dyslipidemia diabetes mellitus obesity quit cigarettes one year ago. Has 20 pack-year history. Home medications atorvastatin hydrochlorothiazide metformin montelukast loratadine modafinil albuterol Combivent and has a DEXA scan On review of system he admits to having sciatica of his right leg and he may have had cervical spine injury. He is vague about it. He is status post polypectomy and hemorrhoidectomy. Objective Vitals Vital Signs Date Time Temp Pulse Resp B/P (MAP) Pulse Ox O2 Delivery O2 Flow Rate FiO2 12/16/24 12:53 18 95 Room Air 12/16/24 11:00 98.6 65 129/71 (90) 12/16/24 06:35 0 Lab Results: 12/15/24 2314 12/16/24 0636 Objective Carotid brisk upstroke without bruit chest clear to auscultation percussion heart no murmur has no S3 gallop no rub abdomen active bowel sounds no bruits pulses plus two upper and lower extremities. Ocular motion intact no nystagmus no tremors speech fluent patient extremely anxious. He is afraid of needles. Problem\Assessment\Plan Additional Plan Impression: Noncardiac chest pain. Five risk factors for coronary artery disease with anterior wall reversible ischemia on nuclear stress testing. Recommendation: Diagnostic coronary angiography. Risks benefits alternatives discussed with patient he desires to proceed. He is allergic to iodine. He will receive prednisone 60 mg p.o. Benadryl and Solu-Cortef 100. Risks of procedure include and not restricted to stroke myocardial infarction renal failure neurologic vascular complications bleeding complications allergic reaction. He he he has high-grade stenosis he was made to proceed with intervention. MARIELA GARRISON MD Dec 16, 2024 17:05
--- NOTE | 2024-12-16 17:45 | CARDIOLOGY REPORT ---
APPROVED REPORT EXAM: Comprehensive 2D, Doppler, and color-flow Echocardiogram. Patient Location: [facility] C Heart Rate: 60's bpm Rhythm: SINUS Indications CHEST PAIN DIABETES MELLITUS HYPERTENSION ASTHMA Software Development Advisor: NONE Previous echo: NONE 2D Dimensions RVDd 3.3 cm IVSd 0.9 (0.7-1.1cm) LVDd 4.9 cm PWd 1.0 (0.7-1.1cm) IVSs 1.0 (0.8-1.2cm) LVDs 3.7 (2.5-4.0cm) PWs 1.7 (0.8-1.2cm) LVOT Diameter 1.99 (1.8-2.4cm) FS (%) 25.4 % SV 57.0 ml CO 3.4 L/min M-Mode Dimensions Left Atrium(MM) 4.10 (2.5-4.0cm) Aortic Root 2.82 (2.2-3.7cm) Aortic Cusp Exc 1.65 (1.5-2.0cm) MV EPSS 0.3 (<0.5cm) Aortic Valve AoV Peak Hai. 138.0 cm/s AoV VTI 20.6 cm AO Peak GR. 7.6 mmHg AO Mean GR. 4 mmHg LVOT VTI 23.32 cm LVOT Peak Hai. 102.0 cm/s CELIA(VTI)/BSA 3.51 cm2/m2 CELIA (VTI) 3.51 cm2 Mitral Valve MV E Velocity 93.0 cm/s MV Peak Gr. 6 mmHg MV DECEL TIME 224 ms MV A Velocity 59.3 cm/s MV PHT 48 ms E/A Ratio 1.6 MVA (PHT) 4.58 cm2 MV MLyd307.1 cm/s TDI Lateral E' P. V11.04 cm/s E/Lateral E' 8.4 LEFT VENTRICLE Normal LV size and wall thickness. Overall systolic function is normal. LVEF is 60%. RIGHT VENTRICLE RV is mildly dilated in size with normal function. ATRIA Left atrium is mildly dilated. AORTIC VALVE Trileaflet AV appears mildly sclerotic without stenosis. Trivial insufficiency. MITRAL VALVE Mild to moderate MV annular calcification without stenosis. Trace regurgitation. TRICUSPID VALVE TV appears structurally normal with trace regurgitation. PULMONIC VALVE Normal PV without stenosis, no insufficiency. GREAT VESSELS The aortic root is normal in size. The IVC is normal in size and collapses >50% with inspiration. PERICARDIUM Normal pericardium. No effusion. Other Information Study Quality: Adequate Conclusion Normal LV size and wall thickness. Overall systolic function is normal. LVEF is 60%. RV is mildly dilated in size with normal function. Left atrium is mildly dilated. Trileaflet AV appears mildly sclerotic without stenosis. Trivial insufficiency. Mild to moderate MV annular calcification without stenosis. Trace regurgitation. TV appears structurally normal with trace regurgitation. Normal pericardium. No effusion.
--- NOTE | 2024-12-16 17:48 | CARDIAC CATH REPORT ---
Cardiology Post Cath Findings Providers to Cardiology post catheterization note: Uncomplicated left heart catheterization coronary arteriography left ventriculography Angio-Seal application. Indication: Noncardiac chest pain with abnormal nuclear stress test anterior wall reversible ischemia five risk factors for coronary artery disease. Findings: Normal left ventriculography. 2. Normal left and right coronary arteries. Comment: Noncardiac chest pain false positive nuclear stress test. Discharge in a.m. if stable and if you are not pursuing any other investigations. MARIELA GARRISON MD Dec 16, 2024 17:48
[2024-12-16] MEDS ORDERED: normal saline 1000ml 1,000 ML IV SCH (17:55)
[2024-12-16] MEDS ORDERED: HYDROcodone/acetaminophen 10/325mg tab PO PRN (18:00)
[2024-12-16] MEDS ORDERED: proCHLORperazine 10 MG/2 ml inj IV PRN (18:00)
[2024-12-16] MEDS ORDERED: OXAZEpam 15mg capsule PO PRN (18:00)
[2024-12-16] MEDS ORDERED: HYDROcodone/acetaminophen 5mg/325mg tablet PO PRN (18:00)
--- NOTE | 2024-12-16 20:47 | PROGRESS NOTE ---
Daily Progress Note Providers to CC ~ Antibiotic Timeout Antibiotic Ordered?: No Subjective Patient was seen today in presence of patient's and daughter. Patient's current updated medical condition discussed with them in stress testing results was abnormal that was discussed in visit. Patient did mentioned to me that he d oes binge drinking whenever he drinks. export specialist Dr. Knight contacted and he agreed to take the patient for cardiac catheterization today. He recommended to start the patient on the prednisone and Benadryl due to patient's allergy to shellfish and iodine. Objective Vital Signs Date Time Temp Pulse Resp B/P (MAP) Pulse Ox O2 Delivery O2 Flow Rate FiO2 12/16/24 20:07 70 12/16/24 18:15 16 107/79 (88) 95 Room Air 12/16/24 17:30 98.1 12/16/24 06:35 0 Result Diagram: 12/15/24 2314 12/16/24 0636 General-patient not in any acute distress, alert awake oriented,age-appropriate, looks comfortable HEENT-atraumatic normocephalic, neck supple without elevated JVD, no thyromegaly or carotid bruit. No lymphadenopathy bilaterally. Eyes-no icterus or pallor seen in eyes Chest-clear to auscultation bilaterally, breathing nonlabored no tachypnea, no wheezing, no crepitation, no crackles. Heart-S1-S2 normal, regular heart rate no murmur Abdomen bowel sounds positive on auscultation, soft nondistended nontender no guarding, no rigidity Skin no active skin rash Neurology-grossly intact, nonfocal alert awake oriented Extremity- no pedal edema able to move all 4 extremities Psychiatry - patient is not confused or agitated cooperated during physical examination Problem\Assessment\Plan 49 years old male with history of hypertension, dyslipidemia and diabetes mellitus presented with chest pain Chest pain, POSSIBLE CARDIAC Heart score: Four moderate score risk of MACE of 12-16.6% EKG, rate 88, sinus rhythm, Q-wave on lead three and AVF Serial troponin is negative, chest x-ray unremarkable Lexiscan ordered and results showed Reversible anteroapical defect. Patient received aspirin 325, we will continue aspirin 81 on Lipitor 80 mg, metoprolol 50 Nitroglycerin and morphine for pain management History of diabetes mellitus Hemoglobin A1c is 6.7 Hyperglycemia hypoglycemia protocol placed Hypokalemia Patient reported intermittent diarrhea in the past Replaced by protocol JAVIER Creatinine 1.31, BUN 18 on IV fluid , continue monitoring Code Status: full DVT prophylaxis: heparin sq Analgesia/sedation: nitro, morphine Line/tube: peripheral GI prophylaxis: protonix Nutrition: NPO for cyndy scan Prognosis: Fair Patient was seen today in presence of patient's and daughter. Patient's current updated medical condition discussed with them in stress testing results was abnormal that was discussed in visit. Patient did mentioned to me that he d oes binge drinking whenever he drinks. export specialist Dr. Knight contacted and he agreed to take the patient for cardiac catheterization today. He recommended to start the patient on the prednisone and Benadryl due to patient's allergy to shellfish and iodine. Disposition: Continue monitoring patient in PCU floor with telemetry Date of Service: Dec 16, 2024 Billing Provider: LINCOLN CANALES MD Common Visit Codes: [id number] INP/OBS CARE (MOD), [id number] INP/OBS CARE(HIGH) LINCOLN CANALES MD Dec 16, 2024 20:47
[2024-12-17 02:00] VITALS: BP 101/56; PULSE 70; RESP 18; TEMP 98
[2024-12-17 06:00] VITALS: BP 116/68; PULSE 67; RESP 16; TEMP 98; O2SAT 95
[2024-12-17 06:02] LABS: BASOPHILS # (AUTO) 0.1 X10'3 (0-0.2); BASOPHILS % (AUTO) 0.7 % (0-1); EOSINOPHILS % (AUTO) 0.1 % (0-6); HEMATOCRIT 43.8 % (42.0-52.0); HEMOGLOBIN 14.6 g/dl (14.0-17.9); LYMPHOCYTES # (AUTO) 2.2 X10'3 (1.1-4.8); LYMPHOCYTES % (AUTO) 19.7 % (21-51); MEAN CORPUSCULAR HEMOGLOBIN 29.3 PG (27.0-31.0); MEAN CORPUSCULAR HGB CONC 33.3 g/dL (33.0-36.5); MEAN CORPUSCULAR VOLUME 88.1 FL (78-98); MEAN PLATELET VOLUME 7.6 FL (7.4-10.4); MONOCYTES # (AUTO) 1.4 X10'3 (0-0.9); MONOCYTES % (AUTO) 12.9 % (2-12); NEUTROPHILS # (AUTO) 7.5 X10'3 (1.8-7.7); NEUTROPHILS % (AUTO) 66.6 % (42-75); PLATELET COUNT 252 X10'3 (140-440); RED BLOOD COUNT 4.98 X10'6 (4.70-6.10); RED CELL DISTRIBUTION WIDTH 14.2 % (11.5-14.5); WHITE BLOOD COUNT 11.2 X10'3 (4.5-11.0)
[2024-12-17 06:14] LABS: ALANINE AMINOTRANSFERASE 30 U/L (12-78); ALBUMIN 3.5 G/DL (3.4-5.0); ALBUMIN/GLOBULIN RATIO 1.2 (1.1-1.5); ALKALINE PHOSPHATASE 86 IU/L (46-116); ANION GAP 11 (8-16); ASPARTATE AMINO TRANSFERASE 13 U/L (10-37); BILIRUBIN,TOTAL 0.4 MG/DL (0.1-1.0); BLOOD UREA NITROGEN 17 MG/DL (7-18); BUN/CREATININE RATIO 19.3 (10.0-20.0); CHLORIDE 110 MMOL/L (99-107); CHOL/HDL RATIO 3.3 (0.00-4.99); CHOLESTEROL 154 MG/DL (0-200); CREATININE 0.88 MG/DL (0.60-1.10); GLUCOSE 148 MG/DL (70-104); HDL CHOLESTEROL 46 MG/DL (35-60); LDL CHOLESTEROL 81 MG/DL (50-100); POTASSIUM 4.1 MMOL/L (3.5-5.1); SODIUM 146 MMOL/L (135-145); TOTAL CARBON DIOXIDE 25.4 MMOL/L (24-32); TOTAL PROTEIN 6.4 G/DL (6.4-8.2); TRIGLYCERIDES 148 MG/DL (20-135); eCRCL 96 ML/MIN; eGFR > 90 ML/MIN
--- NOTE | 2024-12-17 07:02 | CARDIOLOGY REPORT ---
DATE OF SERVICE: 12/16/2024 DICTATING PHYSICIAN: Federico Knight MD PROCEDURES: * Left heart catheterization. * Left ventriculography. * Selective left and right coronary arteriography. * Right iliofemoral arteriogram, Angio-Seal application. * Conscious sedation administration of 30 minutes. BRIEF HISTORY AND INDICATION: A 49-year-old male came to the emergency room with chest pain. He had a nuclear stress test with anterior wall reversible ischemia. Equivocal symptoms during the nuclear stress test. He has treated hypertension, diabetes mellitus, dyslipidemia, has cervicalgia and lumbosacral sciatica. Risks, benefits, and alternatives of diagnostic heart catheterization were discussed with him, and he has decided to proceed. Risks included, not restricted to , stroke, myocardial infarction, renal failure, neurologic or vascular complications, bleeding complications, and allergic reaction. TECHNIQUE: Following usual sterile preparation and draping, the right groin was infiltrated with 10 mL of 1% lidocaine local anesthetic. The patient is extremely nervous, appears to have general anxiety and "hates needles." He received 4 mg Versed and 100 mcg fentanyl for conscious sedation. Preoperatively, he received 60 mg of prednisone in the laboratory assistant and Solu-Cortef 100 mg intravenously as HE HAS DOCUMENTED SHELLFISH ALLERGY WITH HIVES. Following single wall puncture technique, J-tip guidewire lead, a 6-Greenlandic sheath was then introduced into the right femoral artery. During the procedure, he required 150 mcg of intraarterial nitroglycerin for blood pressure control. Selective left and right coronary arteriography was performed with Malcolm preformed catheters. Left ventriculography in the right anterior oblique projection with straight pigtail catheter. The catheter exchanges were under fluoroscopic guidance with J-tip guidewire lead. At termination, right iliofemoral arteriogram was performed. Angio-Seal was applied in the laboratory assistant. Hemostasis was obtained. A 95 mL of Omnipaque-350 contrast was administered. Fluoroscopy time was 2.9 minutes. Radiation exposure 6,270 cGy per cm2. FINDINGS: 5 feet 8 inches, 174 pounds. AO 135/79, LV 135/3-13. LEFT VENTRICULOGRAM: Ejection fraction was 66%. There was a wide smooth left main coronary. There was smooth, large left anterior descending diagonals of equal size. The distal one-third of the left anterior descending is 1 mm in diameter with scattered 15% narrowings. Left circumflex provides a large left atrial branch, a small obtuse marginal and posterolateral branch 1.5 mm in diameter, short vessels. There was a very large, smooth, tortuous 5 cm wide right coronary providing posterior descending and posterolateral that reached the apex of the myocardium. These are large vessels. The distal second posterolateral is 1 mm in diameter. Right iliofemoral artery is smooth. RESULTS: * Normal left ventriculogram. Ejection fraction of 66%. * Smooth wide left main coronary artery. * Smooth large left anterior descending diagonals, 3.5 mm in diameter, equal size. Distal left anterior descending with 15% scattered narrowing, 1 mm vessel. * Left circumflex: Large left atrial branch, smaller obtuse marginal posterolateral branches. * Smooth tortuous 5-mm wide right coronary, provides large posterior descending, large posterolateral branch that reaches the apex of the myocardium. COMMENT: The patient has noncardiac chest pain. He had an apical anterior reversible ischemia on his nuclear stress testing, which may be due to the small distal left anterior descending vasculature. RECOMMENDATIONS: He is recommended for continued risk factor intervention and medical therapy. Federico Knight MD TID: [id number] RECEIPT: [id number] CED/JOSE/NIGEL cc: JONI Falocn
[2024-12-17 08:00] VITALS: RESP 16; O2SAT 95
[2024-12-17 10:00] VITALS: BP 125/65; PULSE 77; RESP 20; TEMP 98; O2SAT 97
[2024-12-17] MEDS ORDERED: ATOR40TA71 PO (10:24)
--- NOTE | 2024-12-17 18:42 | DISCHARGE SUMMARY ---
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 Complications: None Condition on DC: Stable New Medications: Atorvastatin Calcium (Atorvastatin Calcium) 40 Mg Tablet 1 TAB PO DAILY for 30 Days, #30 TAB 0 Refills Continued Medications: Albuterol Sulfate (Albuterol Sulfate) 2.5 Mg/3 Ml Vial.neb Hydrochlorothiazide (Hydrochlorothiazide) 25 Mg Tablet 1 TAB PO DAILY Ipratropium/Albuterol Sulfate Inhaler* (Combivent Inhaler*) 14.7 Gm Inhaler 2 PUFFS IH Q4H PRN Loratadine (Loratadine) 10 Mg Tablet 1 TAB PO DAILY Metformin HCl (Metformin HCl) 1,000 Mg Tablet 1 TAB PO BID Metoprolol Succinate (Metoprolol Succinate) 50 Mg Tab.sr.24h 1 TAB PO DAILY Montelukast Sodium (Montelukast Sodium) 10 Mg Tablet 1 TAB PO DAILY Discontinued Medications: Atorvastatin Calcium (Atorvastatin Calcium) 20 Mg Tablet 1 TAB PO DAILY Discharge Summary: The patient was admitted by resident physician NADIRA Molina under the supervision of ROXANN Gray MD with the following HPI:"49 years old male with history of hypertension dyslipidemia diabetes mellitus presented to the ED with chest pain. Patient reported intermittent chest pain started about three days ago and it last about couple of sec. It was not radiated, located on the upper chest and not related to physical activity or rest. Patient denied coughing shortness of breaths. He denied any exacerbation or alleviating factor. 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 This does not appear to be muscle skeletal etiology either for the chest pain. The patient had an acute kidney injury with a creatinine of 1.31 on admission and improved to 0.88 thus the patient's acute kidney injury was possibly secondary to ATN. The patient has mqv-[id number]-ocxnmunqo diabetes mellitus his blood sugars were controlled during hospitalization in his hemoglobin A1c is 6.7. The patient has hypokalemia serum potassium of 3.0 on admission this normalized by the day discharge to 4.1 with the replacement protocol Gen. No acute distress alert and oriented 4 Lungs clear to ascultation bilaterally, no wheezes rales or rhonchi appreciated Heart normal sinus rhythm no murmurs rubs or clicks noted Abdomen soft nontender bowel sounds are normoactive Lower extremities no clubbing cyanosis, nor edema appreciated bilaterally The patient felt ready to be discharged and was medically cleared to be discharged on 12/17/2024 The patient was seen and evaluated on day of discharge. Time spent on discharge 25 minutes The patient recovered sooner than to be expected with chest pain and positive Lexiscan stress test *Problems/Diagnosis: (1) Unstable angina Status: Acute Total Time Spent on D/C: > 30 Minutes Date of Service: Dec 17, 2024 Billing Provider: FREDERICK LOWERY DO Common Visit Codes: 31321-MKF/OBS DISCH DAY <30MIN, 80808-MQM/OBS DISCH DAY >30min FREDERICK LOWERY DO Dec 17, 2024 18:42
== END 2024-12-17 11:00 | disposition home or self-care (01) | DRG 191 ==
LOC: ER 23:02 → ED HOLD 12-16 05:17 → UNDOADMIN 12-16 05:17 → ED HOLD 12-16 06:29 → PCU 3S 12-16 09:18 → UNDODISIN 12-17 11:00
PROVIDERS: ADMIT Internal Medicine Critical Care Medicine; ATTEND Internal Medicine
PROC: 4A023N7 Measurement of Cardiac Sampling and Pressure, Left Heart, Percutaneous Approach (ICD-10-PCS; principal; 2024-12-16)
PROC: B2111ZZ Fluoroscopy of Multiple Coronary Arteries using Low Osmolar Contrast (ICD-10-PCS; 2024-12-16)
PROC: B2151ZZ Fluoroscopy of Left Heart using Low Osmolar Contrast (ICD-10-PCS; 2024-12-16)
PROC: B41F1ZZ Fluoroscopy of Right Lower Extremity Arteries using Low Osmolar Contrast (ICD-10-PCS; 2024-12-16)
PROC: 4A02XM4 Measurement of Cardiac Total Activity, External Approach (ICD-10-PCS; 2024-12-16)
PROC: 3E033HZ Introduction of Radioactive Substance into Peripheral Vein, Percutaneous Approach (ICD-10-PCS; 2024-12-16)
DX: I20.0 Unstable angina (principal); N17.0 Acute kidney failure with tubular necrosis; E11.9 Type 2 diabetes mellitus without complications; I10 Essential (primary) hypertension; E87.6 Hypokalemia; E78.5 Hyperlipidemia, unspecified; E66.9 Obesity, unspecified; M54.31 Sciatica, right side; J45.909 Unspecified asthma, uncomplicated; Z91.013 Allergy to seafood; Z79.84 Long term (current) use of oral hypoglycemic drugs; Z79.899 Other long term (current) drug therapy; Z87.891 Personal history of nicotine dependence; Z83.3 Family history of diabetes mellitus; Z82.49 Family history of ischemic heart disease and other diseases of the circulatory system; Z68.26 Body mass index [BMI] 26.0-26.9, adult
CPT/HCPCS: 36415; 71045; 78452; 80048; 80053; 80061; 83036; 83735; 83880; 84132; 84443; 84484; 85025; 87081; 93005; 93017; 93306; 93458; 99152; 99153; A6258; A9500; C1760; G0378; J1644; J1720; J2003; J2250; J2785; J3010; J7030; J7512; Q0163; Q9967